=== PATIENT | female | born 1945 | race Caucasian/White ===

== ENCOUNTER 2025-05-10 14:34 | Inpatient (IN) | payer MEDICARE, MEDICAID ==
[~2025-05-10] VITALS: Ht 160 cm; Wt 56.0 kg
[2025-05-10 15:00] LABS: MEAN PLATELET VOLUME 7.9 FL (7.4-10.4); RED CELL DISTRIBUTION WIDTH 15.1 % (11.5-14.5)
--- NOTE | 2025-05-10 15:10 | RADIOLOGY REPORT ---
CHEST RADIOGRAPH Indication: CP Technique: Single frontal view of the chest was obtained Comparison: None FINDINGS: Lines and Tubes: None Lungs: Right medial lower lung zone opacity. Left basilar Linear densities. Pleura: No effusion. No pneumothorax. Cardiomediastinal contours: Unremarkable Bones: No acute osseous abnormality. IMPRESSION: Right medial lower lung zone pneumonia/atelectasis with left basilar linear atelectasis.
--- NOTE | 2025-05-10 15:15 | Physician Documentation ---
History of Present Illness ~ Chief Complaint: ALOC Stated Complaint: ALOC Time Seen by MD: 14:44 OK to notify your PCP?: Yes Primary Medical Doctor: OZZIEK Source: RN/MD, EMS, RN notes reviewed, EMS notes reviewed, old records Mode of Arrival: EMS, Stretcher [facility] BED 16 This patient is a 80 y/o female BIBEMS to ED for altered mental status. Per EMS patient has had progressively worsening ALOC over the past four days, and today is significantly worse. Patient has also been found down from falls twice in the past 3 days, unknown if lost consciousness at any point. She denies any complaints of pain, however her mental status is far from baseline. Per EMS patient normally conversant, but now AOx2 and not oriented to place or events. She also smells strongly of urine and family at home concerned for UTI. Per EMS patient's family at home state she has aso been having fevers and chills. She is able to ambulate with some assistance. When EMS arrived, patient was on 2L of O2 via NC which maintained her oxygen stauration at 97%, and when off of it, saturation drops to 93%. EMS and family unaware of any respiratory diagnosis. Patient states she has had a dry cough but denies any other symptoms. Denies hea dache, fever, or chills. Denies any pain with urination. Patient denies any other associated symptoms at this time. Patient denies any other alleviating or exacerbating factors. Medication Reconciliation Allergies: Coded Allergies: No Known Allergies (Unverified , 05/10/25) Scheduled Amlodipine* (Norvasc*), 1 TABLET PO DAILY, (Reported) Aspirin (Aspir 81), 1 TAB PO DAILY, (Reported) Duloxetine HCl (Duloxetine HCl), 1 CAP PO DAILY, (Reported) Gabapentin (Gabapentin), 1 TAB PO Q8H, (Reported) Oxybutynin Chloride (Oxybutynin Chloride), 1 TAB PO Q12H, (Reported) Quetiapine Fumarate (Seroquel), 1 TAB PO HS, (Reported) Trazodone HCl (Trazodone HCl), 1 TAB PO HS, (Reported) Past Medical History Past Medical History: No Pertinent History, Hypertension, UTI Past Surgical History: no surgical history Smoking Status: Never smoker Alcohol Use: None Drug Use: none Review of Systems All Other Systems at this time: Reviewed and Negative ROS As stated in the HPI above, otherwise all other systems have been reviewed and negative. Physical Exam Vital Signs: RN Vital Signs have been reviewed: Yes, Temperature: 98.5, Source: Oral, Heart Rate: 84, Respiratory Rate: 18, BP: 132/95, Pulse Oximetry: 94, Weight: 56.000 Oxygen Flow Rate: 1.0 Physical Exam General: The patient is well developed, well nourished, nontoxic appearing and is in no acute distress. Skin: Inland, warm and dry with no rashes. HEENT: Head was normocephalic and atraumatic. Eyes - pupils equal, round, reactive to light and accommodation. Extraocular movements were intact. Conjunctivae were nonicteric. The mouth and oropharynx were clear with dry mucou s membranes. There were no pharyngeal exudates or erythema. Neck: Supple and nontender. There was no jugular venous distention, lymphadenopathy, thyromegaly or masses. Chest: Clear to auscultation bilaterally without wheezes, rales or rhonchi. No accessory muscle use. No dullness to percussion. Heart: 2/6 systolic injection murmur. Rate regular and rhythmic. S1, S2. Palp ation of the chest wall was normal. No rubs or thrills. Abdomen: Soft, nontender and nondistended. Hyperactive bowel sounds. No guarding or rebound. No hepatosplenomegaly or palpable masses. Extremities: No cyanosis, clubbing or edema. The patient moves all extremities. Pulses were equal and symmetric. Neurologic: Motor and sensation grossly intact. Psychologic: The patient was AOx2 Progress Progress Note 5:45 p.m. discussed the case with the hospitalist who kindly agreed to admit the patient for further workup and care. Results/Orders Reviewed/noted all lab results: Yes Results/Orders Orders - NEAL PRASAD MD Chest,Single View (05/10/25 14:40) Monitor (05/10/25 14:40) Saline Lock (05/10/25 14:40) Oxygen (05/10/25 14:40) Electrocardiogram (05/10/25 14:40) Culture Blood (05/10/25 14:46) Acetaminophen 1,000mg/100ml Iv (Ofirmev (05/10/25 17:05) Page Hospitalist (05/10/25 17:46) Fill Out Med Reconciliation (05/10/25 17:46) Straight Cath For Urine Sample (05/10/25 17:48) Potassium Cl 10meq/100ml Bag (Potassium (05/10/25 17:55) Cult Urine + [place] [address] (05/10/25 18:00) Completed Orders - NEAL PRASAD MD Chest,Single View (05/10/25 14:40) Cbc/Diff (05/10/25 14:40) BMP (05/10/25 14:40) PBNP (05/10/25 14:40) Hs Troponin I W Calculations (05/10/25 14:40) Hs Troponin I W Calculations (05/10/25 16:40) Hs Troponin I W Calculations (05/10/25 17:40) Procalcitonin (05/10/25 14:46) Ceftriaxone 2gm/D5w 50ml Bag (Rocephin 2 (05/10/25 14:50) Lacticsepsis (05/10/25 14:46) CK (05/10/25 14:41) Normal Saline 1000ml (0.9% Sodium Chlori (05/10/25 16:50) Acetaminophen 1,000mg/100ml Iv (Ofirmev (05/10/25 20:00) MG (05/10/25 14:41) Ua W/Microscopic, Cult If Ind (05/10/25 16:03) Medications Received in ER Medications (Trade) Dose Ordered Sig/Yoselyn Route PRN Reason Start Time Stop Time Status Last Admin Dose Admin Ceftriaxone Sodium/Dextrose 50 ml @ 100 mls/hr ONCE ONCE IV 05/10/25 14:50 05/10/25 15:19 DC 05/10/25 16:47 100 MLS/HR (0.9% sodium chloride (NS) 1000ml IV soln) 1,000 ml ONCE ONCE IVB 05/10/25 16:50 05/10/25 16:51 DC 05/10/25 17:12 1,000 ML Acetaminophen 100 ml @ 400 mls/hr NOW IV 05/10/25 17:05 05/10/25 20:00 05/10/25 17:12 400 MLS/HR Potassium Chloride 100 ml @ 100 mls/hr ONCE ONCE IV 05/10/25 17:55 05/10/25 18:54 05/10/25 18:10 100 MLS/HR Vital Signs 05/10/25 05/10/25 05/10/25 05/10/25 14:42 14:53 14:53 15:30 Temp 98.5 103.4 Pulse 84 77 Resp 18 18 28 B/P (MAP) 132/95 100/62 (75) Pulse Ox 99 94 96 O2 Delivery Nasal Cannula* O2 Flow Rate 1.0 1 1.0 FiO2 24 05/10/25 05/10/25 05/10/25 05/10/25 16:00 16:30 16:49 17:00 Temp 103.0 102.0 Pulse 78 77 75 76 Resp 20 21 16 15 B/P (MAP) 101/61 (74) 109/64 (79) 110/69 (83) 115/61 (79) Pulse Ox 96 93 93 96 O2 Flow Rate 1.0 1.0 1.0 1.0 FiO2 24 05/10/25 17:27 Temp 101.4 Resp 16 B/P (MAP) 110/60 (77) Pulse Ox 94 O2 Flow Rate 1.0 Laboratory Tests Test 05/10/25 14:41 05/10/25 16:03 05/10/25 16:34 05/10/25 17:45 White Blood Count 7.0 Red Blood Count 3.91 L Hemoglobin 11.9 L Hematocrit 34.7 L Mean Corpuscular Volume 88.7 Mean Corpuscular Hemoglobin 30.6 Mean Corpuscular Hemoglobin Concent 34.4 Red Cell Distribution Width 15.1 H Platelet Count 154 Mean Platelet Volume 7.9 Neutrophils (%) (Auto) 82.4 H Lymphocytes (%) (Auto) 5.0 L Monocytes (%) (Auto) 11.4 Eosinophils (%) (Auto) 0.9 Basophils (%) (Auto) 0.3 Neutrophils # (Auto) 5.8 Lymphocytes # (Auto) 0.4 L Monocytes # (Auto) 0.8 Eosinophils # (Auto) 0.1 Basophils # (Auto) 0.0 CBC Comment Sodium Level 125 L Potassium Level 3.3 L Chloride Level 91 L Carbon Dioxide Level 26.7 Anion Gap 7 L Blood Urea Nitrogen 35 H Creatinine 2.26 H Estimated GFR/1.73 m2 21 BUN/Creatinine Ratio 15.5 Glucose Level 95 Lactic Acid Level 1.0 Calcium Level 8.6 Magnesium Level 2.2 Total Creatine Kinase 224 H Troponin I High Sensitivity 30 26 24 Pro-B-Type Natriuretic Peptide 3591 H Albumin 2.5 L Procalcitonin 21.02 H Chemistry Comments Urine Specimen Description Deleon cath Urine Color Yellow Urine Clarity Cloudy Urine pH 6.0 Urine Specific [place] 1.010 Urine Protein 100 H Urine Glucose (UA) Negative Urine Ketones Negative Urine Occult Blood Moderate H Urine Nitrite Positive H Urine Bilirubin Negative Urine Urobilinogen 0.2 Urine Leukocyte Esterase Moderate H Urine RBC 3-10 Urine WBC 50-100 H Urine Squamous Epithelial Cells None seen Urine Renal Cells Few Urine Bacteria 4+ Urine Mucus None seen Urine Culture Indicated Indicated Volume Urine Centrifuged 10 ml Urine Comment Troponin I High Sens Percent Delta 13 7 Troponin I Hi Sens Absolute Change -4 -2 Microbiology Date/Time Source Procedure Growth Status 05/10/25 15:18 Blood Arm Right Blood Culture - Preliminary NEGATIVE (LESS THAN 24 HOURS) Resulted Re-Evaluation Re-Evaluation : Re-Evaluation: Unchanged Progress Patient was seen and examined. Patient was given reassurance. Patient is altered and confused. Patient was given fluid boluses antibiotics after right middle lobe pneumonia was noted also urinary tract infection as well since she had smell of urine. Patient's laboratory work was consistent with possible sepsis such as a procalcitonin of 21 troponins are negative patient's chemistry had multiple electrolyte abnormalities such as hyponatremia of 125 hypokalemia 3.3 chloride 91 CO2 26 BUN elevated at 35 creatinine 2.26 most likely acute renal failure secondary to dehydration. CPK 224 no signs of rhabdomyolysis proBNP 3591 has a bit concerning. CBC however did not show any leukocytosis with a normal WBC of 7.0 but slight anemia with 11.9 hemoglobin hematocrit 34.7 with 82.4% neutrophils. Urinalysis however did show moderate occult blood nitrates positive leukocyte esterase moderate with 3-10 RBCs 50-100 WBCs no squamous epithelial cells and 4+ bacteria. In addition to aggressive hydration patient received Rocephin Tylenol for fever and was then later admitted to the hospitalist service for further workup and care. Has a patient was hydrated and fever was treated patient's mentation seemed to improve. Continuous liquor tester interpretation shows normal sinus rhythm heart rate 80s, no ectopy, normal, my interpretation. Pulse oximetry monitor interpretation shows low oxygenation at 94% on 1 L oxygen, abnormal, my interpretation. EKG/XRAY/CT/US/VASC/MRI EKG : Intepreting Monitor?: Yes Additional Comment 5009: EDMD Dr. Prasad interpreted the EKG to show normal sinus rhythm at a rate of 82bpm, good R wave progression, QTc of 410ms, noonspecific T waves. Chest X-Ray : Interpreted By: both Additional Comments [address] , [place], [facility] [address] DIAGNOSTIC RADIOLOGY Patient: MATTHEW GARCIA Medical Record: [id number] : 1945, Age: 80 Sex: Female Location: ER Patient Status: [facility] ER Service Date/Time: 05/10/251439 Ordering Physician: NEAL PRASAD MD Exam: CHEST,SINGLE VIEW CHEST RADIOGRAPH Indication: CP Technique: Single frontal view of the chest was obtained Comparison: None FINDINGS: Lines and Tubes: None Lungs: Right medial lower lung zone opacity. Left basilar Linear densities. Pleura: No effusion. No pneumothorax. Cardiomediastinal contours: Unremarkable Bones: No acute osseous abnormality. IMPRESSION: Right medial lower lung zone pneumonia/atelectasis with left basilar linear atelectasis. Electronically Signed by:ANAHI IRENE DO Date & Time: 05/10/251507 Dictated by: ANAHI IRENE DO Dictation date and time: 05/10/251507 Primary Care Provider: NO PRIMARY CARE PROVIDER cc: NEAL PRASAD MD ~ EDMD Dr. Prasad reviewed imaging and agrees with above findings. Medical Decision Making Additional info obtained from: old records Differential Dx:Considerations: Include: dehydration, Delirium Tr., DKA, encephalopathy, hypercalcemia, HHNC, hypoglycemia, hypernatremia, hyponatremia, hypoxia, postictal, closed head injury, C-spine injury, CVA, mass lesion, subarachnoid hemorrhage, drug overdose, encephalopathy, ETOH intoxication, medication toxicity, infection - meningitis, infection - sepsis, infection - UTI, heart failure, renal failure, respiratory failure, hyperthermia, hypothermia, other Departure Disposition: ADMITTED INPATIENT Admitted to Inpatient Unit: yes, to hospitalist Admission Level of Care: PCU with Tele Impression: Primary Impression: Metabolic encephalopathy Additional Impressions: Altered mental status Qualified Codes: R41.0 - Disorientation, unspecified Acute renal failure Qualified Codes: N17.9 - Acute kidney failure, unspecified Pneumonia Qualified Codes: J18.9 - Pneumonia, unspecified organism Acute urinary tract infection Hyponatremia Hypokalemia Sepsis Qualified Codes: A41.9 - Sepsis, unspecified organism; R65.20 - Severe sepsis without septic shock; N17.9 - Acute kidney failure, unspecified Condition: Guarded Referrals: NO PRIMARY CARE PROVIDER (PCP) Education Educated: Patient Educated regarding: diagnosis, need for follow up, other Signature Scribe Signature: Scribed for Neal Prasad MD by Daisy Fleming. 05/10/25 15:33 Attestation: The note accurately reflects work and decisions made by me.Neal Prasad MD 05/10/25 15:14 NEAL PRASAD MD May 10, 2025 15:15
[2025-05-10 15:24] LABS: CREATININE 2.26 MG/DL (0.40-0.90); PRO BRAIN NATRIURETIC PEPTIDE 3591 PG/ML (0-450); TOTAL CARBON DIOXIDE 26.7 MMOL/L (24-32); eCRCL 18 ML/MIN; eGFR 21 ML/MIN
[2025-05-10] MEDS: CefTRIAXone 2gm/D5W 50ml BAG 50 ML IV ONE (16:47)
[2025-05-10] MEDS: acetaminophen 1,000mg/100ml IV 100 ML IV SCH (17:12)
[2025-05-10] MEDS: normal saline 1000ML IV soln IVB ONE ×2 (17:12→18:25)
[2025-05-10] MEDS ORDERED: GABA-1555 PO (17:19)
[2025-05-10] MEDS ORDERED: ASPI-611 PO (17:22)
[2025-05-10] MEDS ORDERED: DULO60CA65 PO (17:22)
[2025-05-10] MEDS ORDERED: TRAZ-251 PO (17:22)
[2025-05-10] MEDS ORDERED: QUET25TA PO (17:22)
[2025-05-10] MEDS ORDERED: OXYB5TAB21 PO (17:22)
[2025-05-10] MEDS ORDERED: AMLO2.5T2 PO (17:22)
[2025-05-10 17:59] LABS: LEUKOCYTE ESTERASE ,URINE MODERATE (Neg); NITRITES, URINE POSITIVE (Neg); OCCULT BLOOD,URINE MODERATE (Neg)
[2025-05-10 18:00] LABS: UA COLLECTION TYPE FOLEY CATH
[2025-05-10 18:05] LABS: SQUAMOUS EPITHELIAL CELL,UR NONE SEEN /LPF (FEW)
[2025-05-10 18:06] LABS: MUCUS STRANDS NONE SEEN /LPF (Neg); RENAL CELLS, URINE FEW /HPF
[2025-05-10] MEDS: potassium CL 10mEq/100ml bag 100 ML IV ONE (18:10)
[2025-05-10] MEDS ORDERED: magnesium Cl slow-release 64mg tablet PO PRN (18:20)
[2025-05-10] MEDS ORDERED: potassium Cl 20 mEq SR tablet PO PRN (18:20)
[2025-05-10] MEDS ORDERED: mag hydrox/Alum hydrox/simeth 30ml oral suspension PO PRN (18:20)
[2025-05-10] MEDS ORDERED: potassium Cl 40MEQ/1/2NS 520ml 520 ML IV PRN (18:20)
[2025-05-10] MEDS ORDERED: metoclopramide 5 mg/ml inj IV PRN (18:20)
[2025-05-10] MEDS ORDERED: magnesium sulf-water 4G/100mL 100 ML IV PRN (18:20)
[2025-05-10] MEDS ORDERED: magnesium hydroxide 30ml (MOM) UD suspension PO PRN (18:20)
[2025-05-10] MEDS ORDERED: magnesium sulf-water 2g/50mL 50 ML IV PRN (18:20)
[2025-05-10] MEDS ORDERED: PERFLUTREN PROTEIN-A MICROSPHR (Optison) 0.22 MG/ML 3ML VIAL IV ONE (18:30)
--- NOTE | 2025-05-10 18:39 | HISTORY AND PHYSICAL-Residence ---
History & Physical Providers to CC Resident Creating Document: INNA PICKETT RES ~ History of Present Illness Primary Medical Doctor: UNK Reason for Admit\Complaint: Sepsis secondary to UTI and pneumonia; KRISSY History of Present Illness This is a 80-year-old female patient with a past medical history of chronic hypoxemic respiratory failure from COPD, hypertension, urinary incontinence, presented to the ER for confusion, poor oral intake and fever. According to the her daughter, patient has been confused, weak and progressively reduced the oral intake for the past five days. The confusion has been progressive and for the last day the patient has not being able to perform her daily activities, is complaining of chest discomfort and has severe shortness of breath with exertion. She also states generalized weakness and diffuse muscle pain, associated with foamy urine and frequency. She denies productive cough, nausea, vomiting or abdominal pain. She had watery diarrhea which has now resolved. No other symptoms reported. Nine for any recent her traumatic injury. Allergies: Coded Allergies: No Known Allergies (Unverified , 05/10/25) Home Medications Home Medications Active Reported Seroquel (Quetiapine Fumarate) 25 Mg Tablet 1 Tab PO HS 30 Days Trazodone HCl 50 Mg Tablet 1 Tab PO HS 30 Days Aspir 81 (Aspirin) 81 Mg Tablet.dr 1 Tab PO DAILY 30 Days Duloxetine HCl 60 Mg Capsule.dr 1 Cap PO DAILY 30 Days Oxybutynin Chloride 5 Mg Tablet 1 Tab PO Q12H 30 Days Norvasc* (Amlodipine Besylate) 2.5 Mg Tablet 1 Tablet PO DAILY 30 Days Gabapentin 800 Mg Tablet 1 Tab PO Q8H 30 Days Past Medical History Past Medical History Chronic hypoxemic respiratory failure Hypertension Presumed COPD Urinary continence Past Surgical History Surgical History Comment Bilateral knee replacement Left shoulder placement Right ankle surgery Past Social History Social History Comment Patient quit smoking one year ago. She used to smoke half a pack of cigarettes daily. No alcohol use. Reports using marijuana in the past. No other illicit drugs reported. Lives with daughter and is independent for daily living Smoking: Quit greater than 1 year Alcohol Use: None Drug Use: Marijuana Lives with: Family Lives In: Home Occupation: retired ROS All Other Systems: Reviewed and Negative Constitutional: Reports: fever, malaise, weakness Eyes: Reports: no symptoms reported ENT: Reports: no symptoms reported Respiratory: Reports: SOB with exertion Cardiovascular: Reports: chest pain Gastrointestinal: Reports: diarrhea Genitourinary: Reports: frequency, incontinence Female Genitalia: Reports: no reported symptoms Neurological: Reports: cognitive dysfunction Musculoskeletal: Reports: muscle pain Integumentary: Reports: no symptoms reported Allergic/Immunologic: Reports: no symptoms reported Hematologic/Lymphatic: Reports: no symptoms reported Endocrine: Reports: intolerance to cold Psychiatric: Reports: no symptoms reported Exam Vitals: Vital Signs Date Time Temp Pulse Resp B/P (MAP) Pulse Ox O2 Delivery O2 Flow Rate FiO2 05/10/25 17:27 101.4 16 110/60 (77) 94 1.0 05/10/25 17:00 76 05/10/25 16:49 24 05/10/25 14:53 Nasal Cannula* General: General: Somnolent but responsive, oriented in person and time, no acute distress. Strong odor of urine. HEENT: Conjunctiva pink, Sclera clear, Mucus Membranes dry Neck: Supple without masses and tenderness. Resp: Mild tachypnea. Crackles heard in the right middle and inferior lobe, no wheezing noted. Heart: Regular Rate and rhythm, normal S1 and S2 without murmur, rub or gallop. Abdomen: Soft, non tender, no organomegaly, no guarding or rebound Extremities: No cyanosis,clubbing or edema. Skin: Warm and Dry. Diagnostic Data Last Recorded Lab Results: 05/10/25 1441 05/10/25 1441 Advance Care Planning Advanced Care plannin - 30 Minutes (Patient wants to be full code) Additional Plan Assessment and plan 1. Sepsis (SIRS criteria + source of infection)- POA 2. Urinary tract infected complicated with sepsis and KRISSY 3. Community-acquired pneumonia, treating with broad-spectrum antibiotics (CURB- 65: 3 points) 4. Acute metabolic encephalopathy from the above 5. Acute kidney injury most likely secondary to vasomotor nephropathy 6. Possible rhabdomyolysis Assessment 80-year-old presented with generalized weakness, muscle pain, confusion, fever and tachypnea Urinary symptoms: Foamy urine, frequency and incontinence. No dysuria or hematuria. No traumatic head injury. Respiratory symptoms: Chest discomfort, severe shortness of breath with exertion. No productive cough. Physical exam: Signs of dehydration, right side crackles, somnolence Labs: WBC 7.0, procalcitonin 21.02, lactic acid 1.0, normal troponins and random blood sugar Labs: Cr 2.26, BUN 35, BUN/Cr 15.5, CPK 224, pending ammonia, pending urine tox UA: Nitrite positive, leukocyte esterase positive, WBC 50-10 CXR: Right medial lower lung zone pneumonia/atelectasis with left basilar linear atelectasis. Plan Hydration: Patient received 1000mL in ER. Given another bolus of 1000mL and started on NS at 125mL/hr. Antibiotics: Started on ceftriaxone and azithromycin. Follow urine and blood culture. Monitor CPK, BMP, CBC, adjust hydration based on clinical response Telemetry for 24h Physical therapy orders placed Deleon placed in the ER. Evaluate tomorrow if it can be discontinued. Ordered urine lytes, ur tox and ammonia 7. Mild hypokalemia, hyponatremia and hypochloremia- most probably from the GI lost Assessment Most likely related to poor oral intake and dehydration, could also contribute to her metabolic encephalopathy K 3.3, Na 125, Cl 91 Plan Hydration with NS Replace K per protocol Plan to recheck BMP if sensorial changes are getting worse 8. Chronic hypoxemic respiratory failure 9. Presumed COPD, not on acute exacerbation 10. Hypertension 11. Urinary continence Assessment Smoking history - quit one year ago Patient on 3L O2 at home, continuously. Not on any inhalers at home. Reports increasing shortness of breath but denies cough or wheezing Daughter reports uncontrolled hypertension. BNP 3591 Plan Albuterol/ipratropium p.r.n. Continue O2 to maintain normoxemia Ordered echocardiogram, lipid panel and A1c Hold amlodipine Pending med reconciliation Code Status: Full code DVT prophylaxis: Heparin Analgesia/sedation: Morphine/[place] Line/tube: PIV GI prophylaxis: None Nutrition: Regular diet Prognosis: Guarded Disposition: Admit to ortho floor with telemetry. Started on IV antibiotics and fluids, pending urine and blood cultures, electrolyte monitoring, PT eval and DC plan. Resident MD attestation The above note has been reviewed and supervised by a senior resident PGY3 Dr Maya Patient was seen, examined and discussed with the attending physician Dr Orozco Date of Service: May 10, 2025 Billing Provider: RODRIGO OROZCO MD Common Visit Codes: 19917-HIOWUOW INP/OBS CARE (HIGH) Secondary Visit Codes: 93461-[id number] CARE PLAN 30 MINUTES INNA PICKETT, RES May 10, 2025 18:39 AALIYAH MAYA RES May 10, 2025 20:03 RODRIGO OROZCO MD May 11, 2025 21:05
[2025-05-10 18:48] LABS: CHOL/HDL RATIO 8.2 (0.00-4.99); LDL CHOLESTEROL 38 MG/DL (50-100)
[2025-05-10 19:06] LABS: OSMOLALITY UA 378 MOSM/K (50-1400)
[2025-05-10 19:09] LABS: PHOSPHORUS 2.0 MG/DL (2.3-4.5)
[2025-05-10 19:18] LABS: OSMOLALITY 277 MOSM/K (280-300)
[2025-05-10] MEDS: normal saline 1000ml 1,000 ML IV SCH (19:39)
[2025-05-10] MEDS: azithromycin/NS 500mg/250ml 250 ML IV SCH (19:39)
[2025-05-10 19:43] LABS: CREATININE,URINE RANDOM 89.0 MG/DL; TOTAL PROTEIN,URINE RANDOM 247.3 MG/DL
[2025-05-10] MEDS ORDERED: acetaminophen 1,000mg/100ml IV 100 ML IV SCH (20:00)
[2025-05-10] MEDS: K and/or MAG REPLACEMENT MC SCH (20:00)
[2025-05-10] MEDS: docusate sod 100mg capsule PO SCH (20:00)
[2025-05-10 20:12] LABS: URINE AMPHETAMINE SCREEN NEGATIVE (Neg); URINE BARBITUATE SCREEN NEGATIVE (Neg); URINE BENZODIAZEPINES SCREEN NEGATIVE (Neg); URINE CANNABINOID SCREEN POSITIVE (Neg); URINE COCAINE SCREEN NEGATIVE (Neg); URINE METHADONE SCREEN NEGATIVE (Neg); URINE OPIATE SCREEN NEGATIVE (Neg); URINE PHENCYCLIDINE SCREEN NEGATIVE (Neg)
[2025-05-10] MEDS: heparin, porcine 5000 units/ml vial SQ SCH (20:24)
[2025-05-10] MEDS: ondansetron/PF 4mg/2ml inj IV PRN (23:36)
[2025-05-11 01:00] VITALS: BP 113/63; PULSE 74; RESP 17; TEMP 97.8; O2SAT 97
[2025-05-11 03:55] VITALS: O2SAT 97
[2025-05-11 05:41] LABS: MEAN PLATELET VOLUME 8.4 FL (7.4-10.4); RED CELL DISTRIBUTION WIDTH 14.6 % (11.5-14.5)
[2025-05-11 05:58] LABS: CREATININE 1.64 MG/DL (0.40-0.90); TOTAL CARBON DIOXIDE 24.9 MMOL/L (24-32); eCRCL 23 ML/MIN; eGFR 30 ML/MIN
[2025-05-11 06:00] VITALS: BP 95/55; PULSE 68; RESP 16; TEMP 98.5; O2SAT 99
--- NOTE | 2025-05-11 07:16 | ELECTROCARDIOGRAPH REPORT ---
[facility] Test Date: 2025-05-10 Test Time: 14:38:40 Pat Name: LILIAM GARCIA Department: EMERGENCY ROOM Room: ORTHO 4022 A Gender: F Regulatory Affairs Strategy Specialist: EMANUEL : 1945 Requested By: NEAL PATEL Order Number: [id number] Reading MD: Dr. Neal Patel Measurements Intervals [place] Rate: 82 P: 0 MI: 192 QRS: 20 QRSD: 89 T: 19 QT: 351 QTc: 410 Interpretive Statements Sinus rhythm Probable left atrial enlargement Borderline T abnormalities, anterior leads Electronically Signed On 05-20-2025 18:47:[address] Neal Patel Please click the below link to view image of tracing.
[2025-05-11] MEDS: potassium Cl 20 mEq SR tablet PO PRN (08:15)
[2025-05-11] MEDS: CefTRIAXone 2gm/D5W 50ml BAG 50 ML IV SCH (08:16)
[2025-05-11 10:00] VITALS: BP 115/72; PULSE 83; RESP 14; TEMP 97.2; O2SAT 93
--- NOTE | 2025-05-11 14:40 | PROGRESS NOTE- Residence ---
Progress Note - Resident Providers to CC Resident Creating Document: AALIYAH MAYA RES ~ Antibiotic Timeout Antibiotic Ordered?: Yes Subjective Patient reports shortness of breath has improved. Her mentation is better and she isn't confused. No complains of abdominal pain, nausea, vomiting at present. Patient also feels thirsty and asked for water. Objective Vital Signs Date Time Temp Pulse Resp B/P (MAP) Pulse Ox O2 Delivery O2 Flow Rate FiO2 05/11/25 10:00 97.2 83 14 115/72 (86) 93 Room Air 05/11/25 08:00 2.0 05/11/25 03:56 97 Result Diagram: 05/11/25 [id number]/11/25512 General: Responsive, oriented in time, place and person. no acute distress. HEENT: Conjunctiva pink, Sclera clear, Mucus Membranes dry Neck: Supple without masses and tenderness. Resp: No tachypnea. Lung sounds better today. Heart: Regular Rate and rhythm, normal S1 and S2 without murmur, rub or gallop. Abdomen: Soft, non tender, no organomegaly, no guarding or rebound Extremities: No cyanosis,clubbing or edema. Skin: Warm and Dry. Assessment Assessment 80-year-old presented with generalized weakness, muscle pain, confusion, fever and tachypnea. She also had progressive confusion, reduced oral intake and shortness of breath on exertion since the last 5 days. She was admitted for further evaluation and management. Plan Plan # Sepsis (SIRS criteria + source of infection)- POA # Urinary tract infected complicated with sepsis and KRISSY # Community-acquired pneumonia, treating with broad-spectrum antibiotics (CURB- 65: 3 points) # Acute metabolic encephalopathy from the above 05/11/2025:- Patient received 1000mL in ER. Given another bolus of 1000mL and started on NS at 125mL/hr. - continue ceftriaxone and azithromycin day two. Preliminary urine and blood culture reports gram negative rods. Follow up final report with sensitivities. - Creatinine improvin.26 -> 1.64, Creatine kinase 180. - WBC 7.8, Procalcitonin 21.02 - Monitor CBC, BMP - Serum ammonia < 10. - Urine cannabinoids positive 05/10/2025:Hydration: Patient received 1000mL in ER. Given another bolus of 1000mL and started on NS at 125mL/hr. Antibiotics: Started on ceftriaxone and azithromycin. Follow urine and blood culture. Monitor CPK, BMP, CBC, adjust hydration based on clinical response Telemetry for 24h Physical therapy orders placed Deleon placed in the ER. Evaluate tomorrow if it can be discontinued. Ordered urine lytes, ur tox and ammonia Patient received 1000mL in ER. Given another bolus of 1000mL and started on NS at 125mL/hr. Antibiotics: Started on ceftriaxone and azithromycin. Follow urine and blood culture. Monitor CPK, BMP, CBC, adjust hydration based on clinical response Telemetry for 24h Physical therapy orders placed Deleon placed in the ER. Evaluate tomorrow if it can be discontinued. Ordered urine lytes, ur tox and ammonia # KRISSY on CKD stage 3- mostly from Prerenal - renal tubular stasis # Mild hypokalemia, hyponatremia and hypochloremia- most probably from the GI lost - Most likely related to poor oral intake and dehydration could also contribute to her metabolic encephalopathy - Urine osmolarity 378, Urine sodium 15, Urine potassium 19, with FENA 0.3%, pre renal - K 3.4, Na 130, Cl 100: better compared to yesterday - Continue hydration with NS - Replace K per protocol - Plan to recheck BMP if sensorial changes are getting worse # Chronic hypoxemic respiratory failure # Presumed COPD, not on acute exacerbation # Hypertension # Urinary continence - Smoking history - quit one year ago. - Patient on 3L O2 at home, continuously. Not on any inhalers at home. Continue O2 to maintain normoxemia - Reports increasing shortness of breath but denies cough or wheezing. Continue Albuterol/ipratropium p.r.n. - Daughter reports uncontrolled hypertension. - BNP 3591, HbA1c 5.1, LDL 38, Triglycerides 169 - Pending echocardiogram - Amlodipine held. AM BP = 115/72 mmhg # Apparent Hypocalcemia - When corrected for albumin levels, corrected calcium = 9.3 (normal) Code Status: Full code DVT prophylaxis: Heparin Analgesia/sedation: Morphine/Cass Line/tube: PIV GI prophylaxis: None Nutrition: Regular diet Prognosis: Guarded Disposition: Continue IV antibiotics and fluids, pending urine and blood cultures, electrolyte monitoring, PT eval and DC plan. Resident attestation: Patient was seen, examined and discussed with attending , Dr. Home MAYA MD Internal Medicine Resident, PGY3 [facility] Date of Service: May 11, 2025 Billing Provider: RODRIGO OROZCO MD Common Visit Codes: [id number] INP/OBS CARE(HIGH) AALIYAH MAYA, RES May 11, 2025 14:40 RODRIGO OROZCO MD May 11, 2025 21:06
[2025-05-11] MEDS: lactose-reduced food (Ensure High Protein) 237ml bottle PO SCH (18:00)
[2025-05-11] MEDS: HYDROcodone/acetaminophen 10/325mg tab PO PRN (19:04)
[2025-05-11 22:00] VITALS: BP 134/77; PULSE 75; RESP 14; TEMP 96.4; O2SAT 96
[2025-05-12 04:27] LABS: MEAN PLATELET VOLUME 8.1 FL (7.4-10.4); RED CELL DISTRIBUTION WIDTH 15.7 % (11.5-14.5)
[2025-05-12 04:42] LABS: CREATININE 1.44 MG/DL (0.40-0.90); TOTAL CARBON DIOXIDE 22.1 MMOL/L (24-32); eCRCL 26 ML/MIN; eGFR 35 ML/MIN
[2025-05-12 06:00] VITALS: BP 95/54; PULSE 72; RESP 14; TEMP 97.6; O2SAT 93
[2025-05-12 08:00] VITALS: RESP 16
[2025-05-12] MEDS: aspirin 81mg, enteric-coated 1 TAB TABLET.DR PO SCH (09:22)
[2025-05-12] MEDS: duloxetine 30mg CAPSULE.DR PO SCH (09:23)
[2025-05-12 10:00] VITALS: BP 126/73; PULSE 68; RESP 16; TEMP 97.3; O2SAT 97
--- NOTE | 2025-05-12 10:09 | CARDIOLOGY REPORT ---
APPROVED REPORT EXAM: Comprehensive 2D, Doppler, and color-flow Echocardiogram. Patient Location: 4022 A Heart Rate: 80's bpm Rhythm: SINUS Indications CORONARY ARTERY DISEASE COPD HYPERTENSION SHORTNESS OF BREATH Nut Sheller: NONE Previous echo: NONE 2D Dimensions RVDd 3.1 cm LA Diam 3.9 cm IVSd 0.9 (0.7-1.1cm) LVDd 4.0 cm PWd 0.9 (0.7-1.1cm) IVSs 1.1 (0.8-1.2cm) LVDs 2.6 (2.5-4.0cm) PWs 1.2 (0.8-1.2cm) LVOT Diameter 1.92 (1.8-2.4cm) LVEF(%) 64.0 (>50%) Ao Asc Diam. 4.09 cm IVC 10.97 mm FS (%) 34.4 % SV 44.8 ml CO 3.7 L/min M-Mode Dimensions Aortic Root 3.33 (2.2-3.7cm) Aortic Valve AoV Peak Terrance. 178.6 cm/s AoV VTI 32.4 cm AO Peak GR. 12.8 mmHg AO Mean GR. 7 mmHg LVOT VTI 28.13 cm LVOT Peak Terrance. 151.8 cm/s AVERY(VTI)/BSA 2.52 cm2/m2 AVERY (VTI) 2.52 cm2 AI P 1/2 Time 420 ms Mitral Valve MV E Velocity 92.5 cm/s MV Peak Gr. 6 mmHg MV DECEL TIME 180 ms MV A Velocity 127.0 cm/s MV PHT 68 ms E/A Ratio 0.7 MVA (PHT) 3.24 cm2 MV VMax 123.3 cm/s Pulmonary Valve PAEDP 18.31 mmHg Tricuspid Valve TR P. Velocity 301 cm/s RAP ESTIMATE 10 mmHg TR Peak Gr. 36 mmHg RVSP 46 mmHg Pulmonary Vein S1 Velocity 75.6 cm/s D2 Velocity 41.9 cm/s PVa Velocity 34.7 cm/s PVa Duration 152 msec LEFT VENTRICLE Normal LV size and wall thickness. Overall systolic function is normal. LVEF is 60-65%. RIGHT VENTRICLE RV is normal size and function. Elevated right heart pressures with an RVSP of 46 mmHg. ATRIA The left atrium size is normal. AORTIC VALVE Trileaflet AV appears mildly sclerotic without stenosis. Moderate insufficiency. MITRAL VALVE Mild MV annular calcification without stenosis. Trace regurgitation. TRICUSPID VALVE TV appears structurally normal with moderate regurgitation. PULMONIC VALVE Normal PV without stenosis, mild insufficiency. GREAT VESSELS The aortic root is normal in size. 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 Incidental finding: distal thoracic/abdominal aorta appears dilated with abnormal flow. Recommend clinical correlation if indicated. IVC is normal in size and collapses greater than 50% with inspiration. PERICARDIUM Normal pericardium. No effusion. Other Information Study Quality: Adequate Conclusion Normal LV size and wall thickness. Overall systolic function is normal. LVEF is 60-65%. RV is normal size and function. Elevated right heart pressures with an RVSP of 46 mmHg. The left atrium size is normal. Trileaflet AV appears mildly sclerotic without stenosis. Moderate insufficiency. Mild MV annular calcification without stenosis. Trace regurgitation. TV appears structurally normal with moderate regurgitation. Normal PV without stenosis, mild insufficiency. 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 Incidental finding: distal thoracic/abdominal aorta appears dilated with abnormal flow. Recommend clinical correlation if indicated. Normal pericardium. No effusion.
--- NOTE | 2025-05-12 11:53 | PROGRESS NOTE- Residence ---
Progress Note - Resident Providers to CC Resident Creating Document: INNA PICKETT RES ~ Antibiotic Timeout Antibiotic Ordered?: Yes Subjective Patient was seen and examined at bedside. She reports shortness of breath has improved back to baseline. Patient denies fever, abdominal pain, nausea or vomiting, tolerating oral diet. No overnight events reported. Objective Vital Signs Date Time Temp Pulse Resp B/P (MAP) Pulse Ox O2 Delivery O2 Flow Rate FiO2 05/11/25 22:00 96.4 75 14 134/77 (96) 96 Nasal Cannula 2.0 05/11/25 03:56 97 Result Diagram: 05/12/2540805/12/25408 Assessment Assessment 80-year-old presented with generalized weakness, muscle pain, confusion, fever and tachypnea. She also had progressive confusion, reduced oral intake and shortness of breath on exertion since the last 5 days. She was admitted for further evaluation and management. Plan Plan # Sepsis (SIRS criteria + source of infection)- POA # Urinary tract infected complicated with sepsis and KRISSY # Community-acquired pneumonia, treating with broad-spectrum antibiotics (CURB- 65: 3 points) # Acute metabolic encephalopathy from the above 05/10/2025: Patient received 1000mL in ER. Given another bolus of 1000mL and started on NS at 125mL/hr. Antibiotics: Started on ceftriaxone and azithromycin. Follow urine and blood culture. Monitor CPK, BMP, CBC, adjust hydration based on clinical response Telemetry for 24h Deleon placed in the ER. Evaluate tomorrow if it can be discontinued. Ordered urine lytes, ur tox and ammonia Patient received 1000mL in ER. Given another bolus of 1000mL and started on NS at 125mL/hr. Antibiotics: Started on ceftriaxone and azithromycin. Follow urine and blood culture. Monitor CPK, BMP, CBC, adjust hydration based on clinical response Telemetry for 24h Physical therapy orders placed Deleon placed in the ER. Evaluate tomorrow if it can be discontinued. Ordered urine lytes, ur tox and ammonia 05/11/2025: - continue ceftriaxone and azithromycin day two. Preliminary urine and blood culture reports gram negative rods. Follow up final report with sensitivities. - Creatinine improvin.26 -> 1.64, Creatine kinase 180. - WBC 7.8, Procalcitonin 21.02 - Monitor CBC, BMP - Serum ammonia < 10. - Urine cannabinoids positive 05/12/2025: - continue ceftriaxone and azithromycin day 3. - Urine culture: E Coli multisensitive - Vitals stable - Possible discharge tomorrow # KRISSY on CKD stage 3- mostly from Prerenal - renal tubular stasis # Mild hypokalemia, hyponatremia and hypochloremia, most probably from the GI lost - improving - Most likely related to poor oral intake and dehydration could also contribute to her metabolic encephalopathy - Urine osmolarity 378, Urine sodium 15, Urine potassium 19, with FENA 0.3%, pre renal - K 3.4, Na 130, Cl 100: better compared to yesterday - Continue hydration with NS - Replace K per protocol - Plan to recheck BMP if sensorial changes are getting worse 05/12/2025 - K 4.0, Na 132, Cl 104 - Continue IV fluids # Chronic hypoxemic respiratory failure # Presumed COPD, not on acute exacerbation # Hypertension # Urinary continence - Smoking history - quit one year ago. - Patient on 3L O2 at home, continuously. Not on any inhalers at home. Continue O2 to maintain normoxemia - Reports increasing shortness of breath but denies cough or wheezing. Continue Albuterol/ipratropium p.r.n. - Daughter reports uncontrolled hypertension. - BNP 3591, HbA1c 5.1, LDL 38, Triglycerides 169 - Pending echocardiogram - Amlodipine held. AM BP = 115/72 mmhg 05/12/2025 - Echo: Overall systolic function is normal. LVEF is 60-65%. Elevated right heart pressures with an RVSP of 46 mmHg. - Plan to discharge with Lasix 20mg po daily # Apparent Hypocalcemia - When corrected for albumin levels, corrected calcium = 9.3 (normal) Code Status: Full code DVT prophylaxis: Heparin Analgesia/sedation: Morphine/Mico Line/tube: PIV GI prophylaxis: None Nutrition: Regular diet Prognosis: Guarded Disposition: Continue IV antibiotics and fluids, anticipated discharge tomorrow. Resident MD attestation The above note has been reviewed and supervised by a senior resident PGY2/PGY3 Patient was seen, examined and discussed with the attending physician Date of Service: May 12, 2025 Billing Provider: RODRIGO OROZCO MD Common Visit Codes: [id number] INP/OBS CARE(HIGH) INNA PICKETT RES May 12, 2025 11:53 RODRIGO OROZCO MD May 13, 2025 06:31
[2025-05-12 18:00] VITALS: BP 94/50; PULSE 76; RESP 14; TEMP 97.8; O2SAT 90
[2025-05-12 22:00] VITALS: BP 104/64; PULSE 80; RESP 14; TEMP 98.2; O2SAT 94
[2025-05-13 06:00] VITALS: BP 124/73; PULSE 79; RESP 14; TEMP 99.1; O2SAT 94
[2025-05-13 06:04] LABS: MEAN PLATELET VOLUME 8.2 FL (7.4-10.4); RED CELL DISTRIBUTION WIDTH 15.7 % (11.5-14.5)
[2025-05-13 06:16] LABS: CREATININE 1.19 MG/DL (0.40-0.90); TOTAL CARBON DIOXIDE 26.3 MMOL/L (24-32); eCRCL 32 ML/MIN; eGFR 44 ML/MIN
[2025-05-13] MEDS ORDERED: CEFD300C3 PO (08:54)
[2025-05-13 10:00] VITALS: BP 130/79; PULSE 81; RESP 18; TEMP 97.6; O2SAT 95
--- NOTE | 2025-05-13 16:54 | DISCHARGE SUMMARY-Residence ---
Discharge Summary Providers to CC Resident Creating Document: INNA PICKETT RES ~ Discharge Summary Admission Diagnosis: Sepsis Hospital Course DATE OF ADMISSION: 05/10/2025 DATE OF DISCHARGE: 05/13/2025 Chest-xray: Right medial lower lung zone pneumonia/atelectasis with left basilar linear atelectasis. Blood and urine culture on : CULT URINE + COLONY CT Final Organism 1 ESCHERICHIA COLI >100,000 CFU/ml E COLI M.I.C. RX --------- --- AMOXICILLIN/CA 16 I CEFAZOLIN 16 R CEFEPIME <=0.12 S CEFTRIAXONE <=0.25 S CIPROFLOXACIN 0.5 I GENTAMICIN <=1 S LEVOFLOXACIN 1 I MEROPENEM <=0.25 S TOBRAMYCIN <=1 S TRIMETHOPRIM/SULFA <=20 S PIP/TAZOBACTAM <=4 S Echocardiogram: Normal LV size and wall thickness. Overall systolic function is normal. LVEF is 60-65%. RV is normal size and function. Elevated right heart pressures with an RVSP of 46 mmHg. The left atrium size is normal. Trileaflet AV appears mildly sclerotic without stenosis. Moderate insufficiency. Mild MV annular calcification without stenosis. Trace regurgitation. TV appears structurally normal with moderate regurgitation. Normal PV without stenosis, mild insufficiency. 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 Incidental finding: distal thoracic/abdominal aorta appears dilated with abnormal flow. Recommend clinical correlation if indicated. Normal pericardium. No effusion. Laboratory Tests Test 05/12/25 04:09 05/13/25 05:24 White Blood Count 7.5 X10'3 8.7 X10'3 Red Blood Count 3.53 X10'6 3.47 X10'6 Hemoglobin 10.7 g/dl 10.6 g/dl Hematocrit 31.5 % 31.3 % Mean Corpuscular Volume 89.4 FL 90.2 FL Mean Corpuscular Hemoglobin 30.3 PG 30.5 PG Mean Corpuscular Hemoglobin Concent 34.0 g/dL 33.8 g/dL Red Cell Distribution Width 15.7 % 15.7 % Platelet Count 152 X10'3 179 X10'3 Mean Platelet Volume 8.1 FL 8.2 FL Neutrophils (%) (Auto) 77.3 % 73.2 % Lymphocytes (%) (Auto) 5.0 % 8.4 % Monocytes (%) (Auto) 16.6 % 16.1 % Eosinophils (%) (Auto) 0.7 % 1.7 % Basophils (%) (Auto) 0.4 % 0.6 % Neutrophils # (Auto) 5.8 X10'3 6.4 X10'3 Lymphocytes # (Auto) 0.4 X10'3 0.7 X10'3 Monocytes # (Auto) 1.2 X10'3 1.4 X10'3 Eosinophils # (Auto) 0.1 X10'3 0.2 X10'3 Basophils # (Auto) 0.0 X10'3 0.1 X10'3 CBC Comment Sodium Level 132 MMOL/L 132 MMOL/L Potassium Level 4.4 MMOL/L 3.7 MMOL/L Chloride Level 104 MMOL/L 103 MMOL/L Carbon Dioxide Level 22.1 MMOL/L 26.3 MMOL/L Anion Gap 6 3 Blood Urea Nitrogen 19 MG/DL 18 MG/DL Creatinine 1.44 MG/DL 1.19 MG/DL Estimated GFR/1.73 m2 35 ML/MIN 44 ML/MIN BUN/Creatinine Ratio 13.2 15.1 Glucose Level 117 MG/DL 90 MG/DL Calcium Level 7.6 MG/DL 7.4 MG/DL Magnesium Level 2.1 MG/DL 1.9 MG/DL Albumin 1.6 G/DL 1.6 G/DL Chemistry Comments Discharge Diagnosis\Comment: # Sepsis (SIRS criteria + source of infection)- POA # Urinary tract infected complicated with sepsis and KRISSY # Community-acquired pneumonia, treating with broad-spectrum antibiotics (CURB- 65: 3 points) # Acute metabolic encephalopathy from the above # KRISSY on CKD stage 3- mostly from Prerenal - renal tubular stasis # Mild hypokalemia, hyponatremia and hypochloremia, most probably from the GI lost - improving # Chronic hypoxemic respiratory failure # Presumed COPD, not on acute exacerbation # Hypertension # Urinary continence # Apparent Hypocalcemia Operations\Procedures: None Consultants: None Complications: None Condition on DC: Stable New Medications: Cefdinir* (Cefdinir*) 300 Mg Capsule 1 CAP PO Q12H for 7 Days, #14 CAP Continued Medications: Amlodipine* (Norvasc*) 2.5 Mg Tablet 1 TABLET PO DAILY for 30 Days, #30 TAB Aspirin (Aspir 81) 81 Mg Tablet.dr 1 TAB PO DAILY for 30 Days, #30 TAB Duloxetine HCl (Duloxetine HCl) 60 Mg Capsule.dr 1 CAP PO DAILY for 30 Days, #30 CAP 0 Refills Gabapentin (Gabapentin) 800 Mg Tablet 1 TAB PO Q8H for 30 Days, #90 TAB 0 Refills Oxybutynin Chloride (Oxybutynin Chloride) 5 Mg Tablet 1 TAB PO Q12H for urinary discomfort for 30 Days, #60 TAB 0 Refills Quetiapine Fumarate (Seroquel) 25 Mg Tablet 1 TAB PO HS for 30 Days, #30 TAB Trazodone HCl (Trazodone HCl) 50 Mg Tablet 1 TAB PO HS for 30 Days, #30 TAB 0 Refills Discharge Summary: History of present illness This is a 80-year-old female patient with a past medical history of chronic hypoxemic respiratory failure from COPD, hypertension, urinary incontinence, p resented to the ER for confusion, poor oral intake and fever. According to the her daughter, patient has been confused, weak and progressively reduced the oral intake for the past five days. The confusion has been progressive and for the last day the patient has not being able to perform her daily activities, is complaining of chest discomfort and has severe shortness of breath with exertion. She also states generalized weakness and diffuse muscle pain, associated with foamy urine and frequency. She denies productive cough, nausea, vomiting or abdominal pain. She had watery diarrhea which has now resolved. No other symptoms reported. Hospital course 80-year-old female patient admitted for sepsis secondary to UTI and community-acquired pneumonia, associated with acute metabolic encephalopathy and acute kidney injury. She had fever, elevated procalcitonin and C-reactive protein but normal WBC and lactic acid. Urine and blood culture were positive for E coli sensitive to ceftriaxone. Patient improved clinically with IV ceftriaxone and IV fluids. She denies fever, shortness for breath, productive cough or any urinary symptoms at the moment of discharge. Patient was cleared by Physical therapy, is tolerating oral diet, kidney function has improved and the pain can be discharged home with oral cefdinir. Discharge physical exam General: Responsive, oriented in time, place and person. no acute distress. HEENT: Conjunctiva pink, Sclera clear, Mucus Membranes moist Neck: Supple without masses and tenderness. Resp: No tachypnea. No adventicious sounds noted. Heart: Regular Rate and rhythm, normal S1 and S2 without murmur, rub or gallop. Abdomen: Soft, non tender, no organomegaly, no guarding or rebound Extremities: No cyanosis,clubbing or edema. Skin: Warm and Dry. Discharge medications See below Discharge instructions Follow up with your primary care doctor in 1-2 weeks Continue home medication Take Cefdinir twice a day for 7 days Come back in case of fever, confusion, new urinary symptoms, shortness of breath or any concerning symptoms *Problems/Diagnosis: (1) COPD (chronic obstructive pulmonary disease) Status: Chronic (2) Chronic hypoxemic respiratory failure Status: Chronic (3) Hypokalemia Status: Resolved (4) Acute renal failure Status: Acute Permanent Comment: Secondary to vasomotor nephropathy Last Edited By: Inna Pickett - Resident on May 13, 2025 16:49 (5) Hyponatremia Status: Resolved (6) Sepsis Status: Resolved (7) Altered mental status Status: Resolved (8) Pneumonia Status: Acute (9) Metabolic encephalopathy Status: Resolved (10) Acute urinary tract infection Status: Acute Total Time Spent on D/C: > 30 Minutes Date of Service: May 13, 2025 Billing Provider: RODRIGO OROZCO MD Common Visit Codes: [id number] DISCH DAY >30min Problem Qualifiers (1) Acute renal failure: Acute renal failure type: unspecified Qualified Codes: N17.9 - Acute kidney failure, unspecified (2) Sepsis: Sepsis type: sepsis due to unspecified organism Sepsis acute organ dysfunction status: with acute organ dysfunction Severe sepsis acute organ dysfunction type: acute renal failure Acute renal failure type: unspecified Severe sepsis shock status: without septic shock Qualified Codes: A41.9 - Sepsis, unspecified organism; R65.20 - Severe sepsis without septic shock; N17.9 - Acute kidney failure, unspecified (3) Altered mental status: Altered mental status type: disorientation Qualified Codes: R41.0 - Disorientation, unspecified (4) Pneumonia: Pneumonia type: due to unspecified organism Laterality: right Lung location: middle lobe of lung Qualified Codes: J18.9 - Pneumonia, unspecified organism INNA PICKETT, MELVIN May 13, 2025 16:53 RODRIGO OROZCO MD May 13, 2025 20:58
[2025-05-13 18:00] VITALS: BP 123/69; PULSE 76; RESP 16; TEMP 98.7; O2SAT 94
[2025-05-13] MEDS: HYDROcodone/acetaminophen 5mg/325mg tablet PO PRN (21:17)
[2025-05-13 22:00] VITALS: BP 134/75; PULSE 79; RESP 16; TEMP 98.6; O2SAT 96
[2025-05-14 03:32] VITALS: O2SAT 94
[2025-05-14 04:54] LABS: MEAN PLATELET VOLUME 7.7 FL (7.4-10.4); RED CELL DISTRIBUTION WIDTH 16.0 % (11.5-14.5)
[2025-05-14 05:09] LABS: CREATININE 1.09 MG/DL (0.40-0.90); TOTAL CARBON DIOXIDE 24.5 MMOL/L (24-32); eCRCL 35 ML/MIN; eGFR 48 ML/MIN
[2025-05-14 06:00] VITALS: BP 157/82; PULSE 80; RESP 18; TEMP 97.8; O2SAT 94
[2025-05-14 10:00] VITALS: BP 118/85; PULSE 97; RESP 13; TEMP 96.8; O2SAT 97
--- NOTE | 2025-05-14 12:24 | PROGRESS NOTE- Residence ---
Progress Note - Resident Providers to CC Resident Creating Document: INNA PICKETT RES ~ Antibiotic Timeout Antibiotic Ordered?: Yes Subjective Patient was seen and examined at bedside. Patient has chronic shortness of breath that is not exacerbated. She denies fever, abdominal pain, nausea or vomiting, tolerating oral diet. No overnight events reported. Patient was discharged yesterday but the daughter wanted to send the patient to a rehab. She was referred and will most likely be discharged tomorrow to a fdc facility. Objective Vital Signs Date Time Temp Pulse Resp B/P (MAP) Pulse Ox O2 Delivery O2 Flow Rate FiO2 05/14/25 10:00 96.8 97 13 118/85 (96) 97 Room Air 05/14/25 03:32 0 21 Result Diagram: 05/14/2544405/14/25444 General: Responsive, oriented in time, place and person. no acute distress. HEENT: Conjunctiva pink, Sclera clear, Mucus Membranes moist Neck: Supple without masses and tenderness. Resp: No tachypnea. No adventicious sounds noted. Heart: Regular Rate and rhythm, normal S1 and S2 without murmur, rub or gallop. Abdomen: Soft, non tender, no organomegaly, no guarding or rebound Extremities: No cyanosis,clubbing or edema. Skin: Warm and Dry. Assessment Assessment 80-year-old presented with generalized weakness, muscle pain, confusion, fever and tachypnea. She also had progressive confusion, reduced oral intake and shortness of breath on exertion since the last 5 days. She was admitted for further evaluation and management. Plan Plan # Sepsis (SIRS criteria + source of infection)- POA # Urinary tract infected complicated with sepsis and KRISSY # Community-acquired pneumonia, treating with broad-spectrum antibiotics (CURB- 65: 3 points) # Acute metabolic encephalopathy from the above 05/10/2025: Patient received 1000mL in ER. Given another bolus of 1000mL and started on NS at 125mL/hr. Antibiotics: Started on ceftriaxone and azithromycin. Follow urine and blood culture. Monitor CPK, BMP, CBC, adjust hydration based on clinical response Telemetry for 24h Deleon placed in the ER. Evaluate tomorrow if it can be discontinued. Ordered urine lytes, ur tox and ammonia Patient received 1000mL in ER. Given another bolus of 1000mL and started on NS at 125mL/hr. Antibiotics: Started on ceftriaxone and azithromycin. Follow urine and blood culture. Monitor CPK, BMP, CBC, adjust hydration based on clinical response Telemetry for 24h Physical therapy orders placed Deleon placed in the ER. Evaluate tomorrow if it can be discontinued. Ordered urine lytes, ur tox and ammonia 05/11/2025: - continue ceftriaxone and azithromycin day two. Preliminary urine and blood culture reports gram negative rods. Follow up final report with sensitivities. - Creatinine improvin.26 -> 1.64, Creatine kinase 180. - WBC 7.8, Procalcitonin 21.02 - Monitor CBC, BMP - Serum ammonia < 10. - Urine cannabinoids positive 05/12/2025: - continue ceftriaxone and azithromycin day 3. - Urine culture: E Coli multisensitive - Vitals stable 05/14/2025: - patient asymptomatic, was discharge tomorrow daughter wanted to send the patient to a rehab - patient was referred out and will most likely go to a fdc facility tomorrow # KRISSY on CKD stage 3- mostly from Prerenal - renal tubular stasis # Mild hypokalemia, hyponatremia and hypochloremia, most probably from the GI lost - resolved - Most likely related to poor oral intake and dehydration could also contribute to her metabolic encephalopathy - Urine osmolarity 378, Urine sodium 15, Urine potassium 19, with FENA 0.3%, pre renal - K 3.4, Na 130, Cl 100: better compared to yesterday - Continue hydration with NS - Replace K per protocol - Plan to recheck BMP if sensorial changes are getting worse 05/14/2025 - K 4.2, Na 140, Cl 105 - hold IV fluids # Chronic hypoxemic respiratory failure # Presumed COPD, not on acute exacerbation # Hypertension # Urinary continence - Smoking history - quit one year ago. - Patient on 3L O2 at home, continuously. Not on any inhalers at home. Continue O2 to maintain normoxemia - Reports increasing shortness of breath but denies cough or wheezing. Continue Albuterol/ipratropium p.r.n. - Daughter reports uncontrolled hypertension. - BNP 3591, HbA1c 5.1, LDL 38, Triglycerides 169 - Pending echocardiogram - Amlodipine held. AM BP = 115/72 mmhg 05/14/2025 - Echo: Overall systolic function is normal. LVEF is 60-65%. Elevated right heart pressures with an RVSP of 46 mmHg. - Plan to discharge with Lasix 20mg po daily # Apparent Hypocalcemia - When corrected for albumin levels, corrected calcium = 9.3 (normal) Code Status: Full code DVT prophylaxis: Heparin Analgesia/sedation: Morphine/[place] Line/tube: PIV GI prophylaxis: None Nutrition: Regular diet Prognosis: Guarded Disposition: Anticipated discharge tomorrow to a fdc facility. Resident MD attestation The above note has been reviewed and supervised by a senior resident PGY2/PGY3 Patient was seen, examined and discussed with the attending physician Date of Service: May 14, 2025 Billing Provider: RODRIGO OROZCO MD Common Visit Codes: [id number] INP/OBS CARE(MOD) INNA PICKETT, RES May 14, 2025 12:24 RODRIGO OROZCO MD May 15, 2025 07:19
[2025-05-14 18:00] VITALS: BP 131/86; PULSE 80; RESP 20; TEMP 97.3; O2SAT 97
[2025-05-14 19:34] VITALS: RESP 20; O2SAT 97
[2025-05-14 22:00] VITALS: BP 126/62; PULSE 62; RESP 16; TEMP 97.9; O2SAT 94
[2025-05-15 06:00] VITALS: BP 145/63; PULSE 71; RESP 16; TEMP 97.9; O2SAT 95
[2025-05-15 06:36] LABS: MEAN PLATELET VOLUME 7.2 FL (7.4-10.4); RED CELL DISTRIBUTION WIDTH 15.6 % (11.5-14.5)
[2025-05-15 06:54] LABS: CREATININE 1.35 MG/DL (0.40-0.90); TOTAL CARBON DIOXIDE 29.0 MMOL/L (24-32); eCRCL 28 ML/MIN; eGFR 38 ML/MIN
[2025-05-15 07:34] LABS: BANDS% (MANUAL) 3.0 % (0-10); LYMPHOCYTES % (MANUAL) 4.0 % (21-51); MONOCYTES % (MANUAL) 2.0 % (2-12); NEUTROPHILS % (MANUAL) 91.0 % (42-75); PLATELET ESTIMATE NORMAL
[2025-05-15 10:00] VITALS: BP 127/78; PULSE 70; RESP 14; TEMP 97.6; O2SAT 97
[2025-05-15 14:34] VITALS: O2SAT 96
== END 2025-05-15 15:14 | DRG 871 ==
LOC: ER 14:36 → ED HOLD 18:23 → ORTHO 4S 05-11 00:46
PROVIDERS: ADMIT Internal Medicine; ATTEND Internal Medicine
DX: A41.9 Sepsis, unspecified organism (principal); G93.41 Metabolic encephalopathy; J18.9 Pneumonia, unspecified organism; N17.0 Acute kidney failure with tubular necrosis; N39.0 Urinary tract infection, site not specified; E87.1 Hypo-osmolality and hyponatremia; J96.11 Chronic respiratory failure with hypoxia; J44.0 Chronic obstructive pulmonary disease with (acute) lower respiratory infection; E87.6 Hypokalemia; R65.20 Severe sepsis without septic shock; N18.30 Chronic kidney disease, stage 3 unspecified; I12.9 Hypertensive chronic kidney disease with stage 1 through stage 4 chronic kidney disease, or unspecified chronic kidney disease; E83.51 Hypocalcemia; E87.8 Other disorders of electrolyte and fluid balance, not elsewhere classified; Z79.82 Long term (current) use of aspirin; Z79.899 Other long term (current) drug therapy
CPT/HCPCS: 36415; 71045; 80048; 80061; 80305; 81001; 82140; 82550; 82570; 83036; 83605; 83735; 83880; 83930; 83935; 84100; 84133; 84145; 84156; 84300; 84484; 85007; 85025; 87040; 87077; 87081; 87088; 87186; 93005; 93306; 96365; 96368; 97110; 97116; 97162; 97530; 99285; C1758; G0378; J0131; J0456; J0696; J1644; J2405; J3480; J7030

== ENCOUNTER 2025-06-08 07:48 | Day surgery (SDC) | payer MEDICARE, MEDICAID ==
[~2025-06-08] VITALS: Ht 165.1 cm; Wt 51.7 kg
[2025-06-08] MEDS: ceFAZolin 2gm/dext,iso 50mL 50 ML IV ONE (05:30)
[~2025-06-08 07:48] MED LIST: AMLO2.5T2 PO; BUPIVAcaine/PF 2.5mg/ml (0.25%) 10ml vial ONE; GABA-1555 PO; LIDOcaine 2% (20mg/ml) 5ml vial ONE; OXYB5TAB21 PO; TRAZ-251 PO
[2025-06-08 08:15] VITALS: BP 162/72; PULSE 69; RESP 16; TEMP 98.5; O2SAT 99
[2025-06-08] MEDS: ringers solution, lacted 1,000 ML IV SCH (08:44)
[2025-06-08] MEDS ORDERED: fentaNYL/PF 50MCG/1 ML 2ML syringe ONE (08:54)
[2025-06-08] MEDS ORDERED: midazolam 1 mg/ML 2ml injection ONE (08:54)
[2025-06-08] MEDS: LIDOcaine 2% (20 mg/ml) 5ml cardiac syringe IJ ONE (09:00)
[2025-06-08] MEDS: BUPIVAcaine/PF 2.5mg/ml (0.25%) 10ml vial IJ ONE (09:00)
[2025-06-08] MEDS ORDERED: propofol inj 20 ML IV ONE (09:15)
[2025-06-08 09:21] VITALS: BP 157/76; PULSE 68; RESP 14; O2SAT 97
[2025-06-08 09:30] VITALS: BP 160/87; PULSE 69; RESP 17; O2SAT 96
[2025-06-08 09:40] VITALS: BP 174/106; PULSE 68; RESP 12; O2SAT 96
[2025-06-08 09:50] VITALS: BP 117/98; PULSE 63; RESP 14; O2SAT 96
[2025-06-08 09:51] VITALS: BP 117/98; PULSE 63; RESP 14; O2SAT 96
--- NOTE | 2025-06-08 13:58 | OPERATIVE REPORT ---
Operative Report Providers to ~ Date of Procedure: Jun 08, 2025 Pre-Operative Diagnosis: Trigger finger right middle ring and small Post-Operative Diagnosis Trigger finger right middle finger ring finger small finger with a contracture Procedure Performed Tendon sheath incision right middle finger right ring finger right small finger, tenotomy right ring finger flexor superficialis, right small finger flexor superficialis Surgeon: Diaz Cancino MD Hydraulic Hammer Operator None Anesthesiologist: Roc Ferguson Type of Anesthesia: Other (Local) Findings: Estimated Blood Loss: None Specimen Removed: None Description of Procedure: The patient is a 80-year-old with locked trigger fingers on the right hand mostly the ring and small finger but also partially to the middle finger. Surgery is indicated to improve function. Risks and benefits were discussed with the patient and she understood and agreed to proceed. He was brought to the operating room where the arm was prepped and draped in usual manner. Time-out procedure was identified. Local anesthetic was infiltrated proximal to the planned incision sites over the middle ring and small finger flexor tendons. Gentle manipulation was done to help over ride some of the contracture. The ring finger seemed to be the worst but the other two straight down quite nicely. The three incisions were made one over the middle ring and small flexor tendons at the distal palm respectively. Starting with the middle finger tendon sheath was identified and opened at the A1 whitney. No contracture was identified. On the ring finger there was adhesion of the flexor superficialis tendon despite the release of the A1 whitney so FDS tenotomy was performed with a excision of a 1 in section of the FDS tendon. This allowed the finger to extend practically straight. On the small finger similar dissection was done through the A1 whitney and because of tightness of the FDS tendon a tenotomy was performed. All three incisions were irrigated and closed with nylon suture and sterile dressing was applied along with a splint holding the three digits in full extension. The tourniquet was released the hand perfused well and she was taken to the recovery room in stable condition and tolerated the procedure well DIAZ CANCINO Jr., MD Jun 08, 2025 13:58
== END 2025-06-08 09:51 | disposition home or self-care (01) ==
LOC: PAS 07:48
PROVIDERS: ATTEND Orthopaedic Surgery Hand Surgery
DX: M65.331 Trigger finger, right middle finger (principal); M65.341 Trigger finger, right ring finger; M65.351 Trigger finger, right little finger; M24.541 Contracture, right hand; I10 Essential (primary) hypertension; M19.90 Unspecified osteoarthritis, unspecified site; Z87.891 Personal history of nicotine dependence; Z79.82 Long term (current) use of aspirin; Z79.891 Long term (current) use of opiate analgesic; Z79.899 Other long term (current) drug therapy; Z96.653 Presence of artificial knee joint, bilateral; Z98.890 Other specified postprocedural states
CPT/HCPCS: 26055; 82948; A4215; A6449; J2003; J2250; J2704; J3010; J3490; J7030; J7120; Z7506; Z7512; Z7610